=== PATIENT | female | born 1980 | race Two or more races ===

== ENCOUNTER 2020-02-23 15:53 | Emergency (ER) | payer OTHER ==
[2020-02-23 16:27] VITALS: BP 119/80; PULSE 77; TEMP 97.6; BMI 23.1
[2020-02-23] MEDS ORDERED: DEXAMETHASONE SOD PHOSPHATE 10 MG/1 ML VIAL IM ONE (16:27)
--- NOTE | 2020-02-23 16:27 | PDOC ---
Rapid Medical Evaluation Time Seen by Provider: 02/23/20 16:22 Medical Evaluation: Allergies Allergy/AdvReac Type Severity Reaction Status Date / Time No Known Allergies Allergy Verified 10/27/16 09:55 02/23/20 16:23 39 year old female pmhx of graves presenting with 1 day of cough with clear phelm. PE: B/L wheezing RRR VSS Plan: Duonebs Dexamethason CXR Pt to precede to ED for further treatment
--- NOTE | 2020-02-23 16:46 | PDOC ---
History of Present Illness - General Chief Complaint: Chest Pain Stated Complaint: CHEST PAIN Time Seen by Provider: 02/23/20 16:22 - History of Present Illness Initial Comments: 02/23/20 17:28 39yo F w/ prior similar episodes p/w 3days of worsening CP and productive cough. She endorses recent increase in EtOH intake and #cigarettes /day. She usually smokes 2-3cigs/week, and now she is smoking ~1pk/week and drinking EtOH every other day. Past History - Medical History Allergies/Adverse Reactions: Allergies Allergy/AdvReac Type Severity Reaction Status Date / Time No Known Allergies Allergy Verified 02/23/20 16:23 Home Medications: Ambulatory Orders Albuterol 0.083% Nebulizer Cande [Ventolin 0.083% Nebulizer Soln -] 1 neb NEB Q4H PRN #30 vial 02/23/20 Nebulizer Accessories [Adult Aerosol Mask] 1 each MC PRN PRN #1 each 02/23/20 Nebulizer [Truneb Nebulizer] 1 each MC PRN PRN #1 each 02/23/20 predniSONE [Deltasone -] 40 mg PO DAILY #4 tablet 02/23/20 Anemia: No Asthma: No Cancer: No Cardiac Disorders: No CVA: No COPD: No CHF: No Dementia: No Diabetes: No GI Disorders: No Disorders: No HTN: No Hypercholesterolemia: No Liver Disease: No Seizures: No Thyroid Disease: Yes (graves disease) - Reproductive History Is Patient Now?: No - Psycho-Social/Smoking History Smoking History: Current every day smoker Have you smoked in the past 12 months: Yes Number of Cigarettes Smoked Daily: 2 Information on smoking cessation initiated: Yes 'Breaking Loose' booklet given: 04/09/17 - Substance Abuse Hx (Audit-C & DAST Scrn) How often the patient has a drink containing alcohol: Monthly or less Number of drinks the patient has on a typical day: 1 or 2 How often the patient has six or more drinks on one occasion: Never Score: In Men: 4 or > Positive; In Women: 3 or > Positive: 1 Screen Result (Pos requires Nsg. Audit-10AR): Negative In the last yr the pt used illegal drug/Rx for NonMed reason: Yes Score: Yes response is considered Positive: 1 Screen Result (Positive result requires Nsg. DAST-10): Positive Review of Systems - Review of Systems Able to Perform ROS?: Yes *Physical Exam - Vital Signs Last Vital Signs Temp Pulse Resp BP Pulse Ox 97.6 F 77 16 119/80 100 02/23/20 16:23 02/23/20 16:23 02/23/20 16:23 02/23/20 16:23 02/23/20 16:23 ED Treatment Course - LABORATORY CBC & Chemistry Diagram: 02/23/20 17:10 02/23/20 17:10 Discharge - Discharge Information Problems reviewed: Yes Clinical Impression/Diagnosis: Wheezing, Chest tightness - Additional Discharge Information Prescriptions: Nebulizer Accessories [Adult Aerosol Mask] 1 each MC PRN PRN #1 each PRN Reason: Dyspnea predniSONE [Deltasone -] 40 mg PO DAILY #4 tablet Nebulizer [Truneb Nebulizer] 1 each MC PRN PRN #1 each PRN Reason: Dyspnea Albuterol 0.083% Nebulizer Cande [Ventolin 0.083% Nebulizer Soln -] 1 neb NEB Q4H PRN #30 vial PRN Reason: Dyspnea - Follow up/Referral Referrals: Roney Mack [Primary Care Provider] - - Patient Discharge Instructions Patient Printed Discharge Instructions: DI for Chest Pain, DI for Atypical Chest Pain Additional Instructions: You were seen in the ED for Chest Pain. We have sent you home with an inhaler. We have sent, to your pharmacy, a nebulizer and 5days of steroids. Please use as directed. Please follow up with your primary doctor within 48hours of leaving the ED today. Come back with any worsening symptoms. - Post Discharge Activity
[2020-02-23] MEDS ORDERED: ALBUTEROL SO4 2.5/IPRATROPIUM 0.5 INH SOL 3 ML VIAL.NEB. NEB ONE (16:52)
[2020-02-23] MEDS ORDERED: DEXAMETHASONE SOD PHOSPHATE 10 MG/1 ML VIAL ONE (16:52)
--- OUTSIDE RECORDS SUMMARY | 2020-02-23 16:58 | XMS ---
:1980 Author Organization [facility] Support Name Relationship Address Phone UE Unavailable Unavailable Unavailable ANA TRACEY SON [address] [place] [address] Re-disclosure Warning The records that you are about to access may contain information from federally- assisted alcohol or drug abuse programs. If such information is present, then the following federally mandated warning applies: This information has been disclosed to you from records protected by federal confidentiality rules (42 CFR part 2). The federal rules prohibit you from making any further disclosure of this information unless further disclosure is expressly permitted by the written consent of the person to whom it pertains or as otherwise permitted by 42 CFR part 2. A general authorization for the release of medical or other information is NOT sufficient for this purpose. The Federal rules restrict any use of the information to criminally investigate or prosecute any alcohol or drug abuse patient.The records that you are about to access may contain highly sensitive health information, the redisclosure of which is protected by Article 27-F of the [facility] Public Health law. If you continue you may haveaccess to information: Regarding HIV / AIDS; Provided by facilities licensed or operated by the [facility] Office of Mental Health; or Provided by the [facility] Office for People With Developmental Disabilities. If such information is present, then the following [facility] mandated warning applies: This information has been disclosed to you from confidential records which are protected by state law. State law prohibits you from making any further disclosure of this information without the specific written consent of the person to whom it pertains, or as otherwise permitted by law. Any unauthorized further disclosure in violation of state law may result in a fine or prison sentence or both. A general authorization for the release of medical or other information is NOT sufficient authorization for further disclosure. Insurance Providers Payer name Policy type Policy ID Covered Covered constitution party's Policy P otto / Coverage constitution party ID relationship to Kelley Inf ormation type kelley AFFINITY [id number] SP [id number] SELF PAY 0000 Self 0000 MEDICAID OP [id number] Self [id number] [facility] [id number] [facility] [id number] 400 AFFINITY/RIANNA CON SELF PAY 0000 Self 0000 MEDICAID OP [id number] Self [id number]
[2020-02-23] MEDS: ALBUTEROL SO4 2.5/IPRATROPIUM 0.5 INH SOL 3 ML VIAL.NEB. NEB SCH ×3 (17:19→17:32)
[2020-02-23 17:34] LABS: BASO % 0.8 % (0-2.0); EOS % 3.2 % (0-4.5); HEMATOCRIT 40.8 % (32.4-45.2); HEMOGLOBIN 14.4 GM/dL (10.7-15.3); LYMPH % 15.6 % (8-40); MCH 35.5 pg (25.7-33.7); MCHC 35.2 g/dl (32.0-36.0); MEAN CELL VOLUME 100.7 fl (80-96); MEAN PLT VOLUME 9.4 fl (7.5-11.1); MONO % 6.9 % (3.8-10.2); NEUT % 73.5 % (42.8-82.8); PLATELET COUNT 186 K/MM3 (134-434); RBC 4.05 M/mm3 (3.60-5.2); RDW 12.6 % (11.6-15.6); WHITE BLOOD COUNT 9.6 K/mm3 (4.0-10.0)
[2020-02-23 17:53] LABS: ALBUMIN 4.1 g/dl (3.4-5.0); ALK PHOS 44 U/L (45-117); ANION GAP 5 MMOL/L (8-16); BILIRUBIN,TOTAL 1.4 mg/dL (0.2-1); BLOOD UREA NITROGEN 9.5 mg/dL (7-18); CALCIUM 9.1 mg/dL (8.5-10.1); CHLORIDE 106 mmol/L (98-107); CO2 28 mmol/L (21-32); CREATININE 0.7 mg/dL (0.55-1.3); GLUCOSE,RANDOM 115 mg/dL (74-106); POTASSIUM 3.6 mmol/L (3.5-5.1); SGOT/AST 19 U/L (15-37); SGPT/ALT 16 U/L (13-61); SODIUM 139 mmol/L (136-145); TOT PROT 7.2 g/dl (6.4-8.2)
--- NOTE | 2020-02-23 18:43 | PDOC ---
Attending Attestation - Resident Resident Name: Tylor Lacy - ED Attending Attestation I have performed the following: I have examined & evaluated the patient, The case was reviewed & discussed with the resident, I agree w/resident's findings & plan, Exceptions are as noted - HPI HPI: 02/23/20 18:37 39YOF with h/o smoking (1pack/week; recently increased her tobacco use), EtOH use, and four prior episodes of chest pain for which she was medically evaluated and had normal workup. She p/w cough, SOB, and wheezing for the past 3 days. She has no albuterol at home; states she has never been on steroids at home. Never intubated or admitted for asthma or other breathing issues. - Physicial Exam PE: GENERAL: well-appearing, A/Ox4, no distress, answers questions appropriately, pleasant HEENT: PERRLA, EOMI, moist mucous membranes NECK/BACK: no midline ttp, no spinal step-off or deformity, no hematoma, full ROM, neck supple CARDIOVASCULAR: regular rate/rhythm, no MGR, strong peripheral pulses, capillary refill <2 seconds, extremities wwp, no edema LUNGS/RESPIRATORY: no respiratory distress, faint bilateral expiratory wheezes, speaking full sentences GI/ABDOMEN: symmetric [id number], normoactive BS, soft, no ttp, no midline pulsatile masses : no CVA tenderness MSK/EXTREMITIES: no muscle atrophy, no acute deformity SKIN: warm and dry, no pallor, no jaundice, no rash, no pathologic-appearing bruising, no skin breakdown, no cuts, no lesions NEUROLOGICAL: GCS 15, CN II-XII grossly intact, 5/5 strength proximally and distally, no facial droop - Medical Decision Making 02/23/20 18:48 39YOF with 4 prior episodes chest tightness/SOB/wheezing p/w 3 days cough, wheezing, SOB same as prior episodes. No albuterol or other meds at home. No official diagnosis of asthma. Initial Vital Signs Temp Pulse Resp BP Pulse Ox 97.6 F 77 16 119/80 100 02/23/20 16:23 02/23/20 16:23 02/23/20 16:23 02/23/20 16:23 02/23/20 16:23 Most likely asthma exacerbation. Less likely bronchitis, PNA, viral syndrome, etc. Provider Orders Category Date Time Status EKG [ELECTROCARDIOGRAM] [CARD] Stat Cardiology 02/23/20 16:39 Ordered EKG needed NOW Care 02/23/20 16:39 Completed CARDIAC PROFILE ([facility]) Stat Lab 02/23/20 17:10 Completed CBC WITH DIFFERENTIAL Stat Lab 02/23/20 17:10 Completed CK INDEX Stat Lab 02/23/20 17:10 Completed CK MB Stat Lab 02/23/20 17:10 Completed COMP METABOLIC PANEL Stat Lab 02/23/20 17:10 Completed SERUM TEST Stat Lab 02/23/20 16:50 Completed Albuterol 2.5/Ipratropium 0.5 [Duoneb -] Medication 02/23/20 16:30 Discontinued 1 amp NEB Q15M Albuterol 2.5/Ipratropium 0.5 [Duoneb -] Medication 02/23/20 16:52 Discon tinued 4 amp NEB .STK-MED ONE Albuterol Sulfate Inhaler - [Ventolin Hfa Inhaler -] Medication 02/24/20 00:00 Ordered 2 puff IH Q6HPO Dexamethasone Injection [Decadron Injection -] Medication 02/23/20 16:52 Discontinued 10 mg .ROUTE .STK-MED ONE Dexamethasone Injection [Decadron Injection -] Medication 02/23/20 16:27 Discontinued 10 mg IM ONCE ONE CHEST X-RAY PORTABLE* [RAD] Stat Radiology 02/23/20 18:06 Taken Medications Discontinued Medications Generic Name Dose Route Start Last Admin Trade Name Freq PRN Reason Stop Dose Admin Albuterol/Ipratropium 1 amp 02/23/20 16:30 02/23/20 17:32 Duoneb - NEB 02/23/20 17:16 1 amp Q15M KATARINA Administration Albuterol/Ipratropium Confirm 02/23/20 16:52 Duoneb - Administered 02/23/20 16:53 Dose 4 amp NEB .STK-MED ONE Dexamethasone Sodium Phosphate 10 mg 02/23/20 16:27 02/23/20 17:02 Decadron Injection - IM 02/23/20 16:28 10 mg ONCE ONE Administration Dexamethasone Sodium Phosphate Confirm 02/23/20 16:52 Decadron Injection - Administered 02/23/20 16:53 Dose 10 mg .ROUTE .STK-MED ONE Lab Results WBC 9.6 K/mm3 (4.0-10.0) 02/23/20 17:10 RBC 4.05 M/mm3 (3.60-5.2) 02/23/20 17:10 Hgb 14.4 GM/dL (10.7-15.3) 02/23/20 17:10 Hct 40.8 % (32.4-45.2) 02/23/20 17:10 MCV 100.7 fl (80-96) H 02/23/20 17:10 MCH 35.5 pg (25.7-33.7) H 02/23/20 17:10 MCHC 35.2 g/dl (32.0-36.0) 02/23/20 17:10 RDW 12.6 % (11.6-15.6) 02/23/20 17:10 Plt Count 186 K/MM3 (134-434) 02/23/20 17:10 MPV 9.4 fl (7.5-11.1) 02/23/20 17:10 Absolute Neuts (auto) 7.1 K/mm3 (1.5-8.0) 02/23/20 17:10 Neutrophils % 73.5 % (42.8-82.8) D 02/23/20 17:10 Lymphocytes % 15.6 % (8-40) D 02/23/20 17:10 Monocytes % 6.9 % (3.8-10.2) 02/23/20 17:10 Eosinophils % 3.2 % (0-4.5) 02/23/20 17:10 Basophils % 0.8 % (0-2.0) 02/23/20 17:10 Nucleated RBC % 0 % (0-0) 02/23/20 17:10 Sodium 139 mmol/L (136-145) 02/23/20 17:10 Potassium 3.6 mmol/L (3.5-5.1) 02/23/20 17:10 Chloride 106 mmol/L (98-107) 02/23/20 17:10 Carbon Dioxide 28 mmol/L (21-32) 02/23/20 17:10 Anion Gap 5 MMOL/L (8-16) L 02/23/20 17:10 BUN 9.5 mg/dL (7-18) 02/23/20 17:10 Creatinine 0.7 mg/dL (0.55-1.3) 02/23/20 17:10 Est GFR (CKD-EPI)AfAm 126.49 02/23/20 17:10 Est GFR (CKD-EPI)NonAf 109.14 02/23/20 17:10 Random Glucose 115 mg/dL (74-106) H 02/23/20 17:10 Calcium 9.1 mg/dL (8.5-10.1) 02/23/20 17:10 Total Bilirubin 1.4 mg/dL (0.2-1) H 02/23/20 17:10 AST 19 U/L (15-37) 02/23/20 17:10 ALT 16 U/L (13-61) 02/23/20 17:10 Alkaline Phosphatase 44 U/L (45-117) L 02/23/20 17:10 Creatine Kinase 211 U/L (26-192) H 02/23/20 17:10 Creatine Kinase Index 0.7 % (0.0-5.0) 02/23/20 17:10 CK-MB (CK-2) 1.5 ng/mL (0.5-3.6) 02/23/20 17:10 Troponin I < 0.02 ng/ml (0.00-0.05) 02/23/20 17:10 Total Protein 7.2 g/dl (6.4-8.2) 02/23/20 17:10 Albumin 4.1 g/dl (3.4-5.0) 02/23/20 17:10 Serum , Qual Negative 02/23/20 16:50 Patient is appropriate for discharge home with close outpatient f/u. Return precautions discussed, meds ordered including neb and albuterol vials and 3 days course steroids. Dispo per resident note. Heart Score/ECG Review - History History: Slightly suspicious - Electrocardiogram EKG: Normal - Age Age: </= 45 - Risk Factors Risk Factors Heart Score: Yes Smoking History Based on the list above the patient has:: 1-2 risk factors - Troponin Troponin: </= normal limit - Score Heart Score - Total: 1 Discharge - Discharge Information Problems reviewed: Yes Clinical Impression/Diagnosis: Wheezing, Chest tightness - Follow up/Referral Referrals: Roney Mack [Primary Care Provider] - - Patient Discharge Instructions - Post Discharge Activity
[2020-02-23] MEDS ORDERED: ALBUTEROL SO4 HFA INHALER IH ONE (19:05)
[2020-02-24] MEDS ORDERED: ALBUTEROL SO4 HFA INHALER IH SCH
--- NOTE | 2020-02-24 10:06 | EKG ---
Test Reason : Blood Pressure : / mmHG Vent. Rate : 075 BPM Atrial Rate : 075 BPM P-R Int : 138 ms QRS Dur : 074 ms QT Int : 394 ms P-R-T Axes : 071 064 064 degrees QTc Int : 439 ms NORMAL SINUS RHYTHM NORMAL ECG NO PREVIOUS ECGS AVAILABLE Confirmed by MD Omar, Tylor ([id number]) on 02/24/2020 10:06:16 AM Referred By: Confirmed By:Tylor Nelson MD
== END 2020-02-23 19:05 | disposition home or self-care (01) ==
LOC: JER 15:53
PROC: 3E0F7GC Introduction of Other Therapeutic Substance into Respiratory Tract, Via Natural or Artificial Opening (ICD-10-PCS; principal; 2020-02-23)
PROC: 3E023GC Introduction of Other Therapeutic Substance into Muscle, Percutaneous Approach (ICD-10-PCS; 2020-02-23)
DX: R06.2 Wheezing (principal); R07.89 Other chest pain
CPT/HCPCS: 36415; 71045-TC-FY; 80053; 82550; 82553; 84484; 84703; 85025; 93005; 93010; 99285-25; J1100

== ENCOUNTER 2022-01-02 12:00 | Emergency (ER) | payer OTHER ==
[2022-01-02 12:27] VITALS: BP 103/69; PULSE 90; RESP 17; TEMP 97.6; BMI 26.6
[2022-01-02] MEDS ORDERED: IBUPROFEN 600 MG TABLET (FP) PO ONE ×2 (13:29→13:33)
== END 2022-01-02 13:58 | disposition home or self-care (01) ==
LOC: JER 12:00 → JERFT 12:00
DX: S70.02XA Contusion of left hip, initial encounter (principal)
CPT/HCPCS: 72170-TC-FY; 99284-25